=== PATIENT | male | born 1945 | race Caucasian/White ===

== ENCOUNTER 2020-11-15 08:54 | Outpatient (CLI) | payer MEDICARE, OTHER, SELFPAY ==
--- NOTE | 2020-11-15 09:10 | USCV_ITS ---
Franco Anderson Age: 75 Gender: M : 1945 Exam Date: 11/15/2020 09:20 Ordering Phys: Bridgett Jose MD ([email or web address]) Technologist: Exam Location: [facility] Indication: CCA STENOSIS Risk Factors: None Previous Vascular Surgery: CABG Right Brachial BP: / Left Brachial BP: / Right Left Velocity (cm/s) Spectral Plaque Velocity (cm/s) Spectral Plaque Syst/Diast Broadening Syst/Diast Broadening 42.40/ 8.00 Prox CCA 42.30 / 5.20 40.20/ 6.60 Mid CCA 43.00 / 8.00 35.80/ 10.20 Hetro Distal CCA 54.90 / 6.70 Hetro 102.60/24.00 Hetro Prox ICA 54.90 / 11.90 Hetro 114.60/25.30 Hetro Mid ICA 54.20 / 12.60 Hetro 114.60/21.30 Distal ICA 60.80 / 15.60 81.30 ECA 51.90 2.70 ICA/CCA 1.11 Antegrade Vertebral Antegrade 42.20/ 7.20 cm/s 56.40/ 12.60 cm/s Tri Subclavian Tri 53.50 113.9 0 FINDINGS Comparison: none available. No significant elevation of systolic or diastolic velocities. Mild elevation of right ratio but no stenosis. Mild bilateral scattered calcified plaque and intimal thickening throughout the common carotid arteries and extending through the bifurcation. Antegrade vertebral arteries. CONCLUSIONS Bilateral ICA stenosis less than 50%. Mild bilateral carotid atherosclerosis. Dr. Lindsey Lindsey DO (Electronically Signed) Final Date: 15 November 2020 10:13 S
== END 2020-11-15 08:55 | disposition home or self-care (01) ==
PROVIDERS: PCP Nurse Practitioner Family; Visit Provider Internal Medicine Cardiovascular Disease
DX: I65.23 Occlusion and stenosis of bilateral carotid arteries (principal)
CPT/HCPCS: 93880

== ENCOUNTER 2020-11-29 09:23 | Outpatient (CLI) | payer MEDICARE, OTHER, SELFPAY ==
[2020-11-29 09:37] VITALS: BMI 28.5
--- NOTE | 2020-11-29 09:55 | NMCV_ITS ---
NM fanny perf SPECT r/s* [id number] Franco Anderson Age: 75 Gender: M : 1945 Exam Date: 11/29/2020 10:52 Ordering Phys: Bridgett Jose MD ([email or web address]) Technologist: LAMONT Porter Exam Location: [facility] Indications: CHEST PAIN STRESS TEST [facility] IMAGE PROTOCOL Rest/Stress 1 Lexiscan Day Radiopharmaceutical Dose (mCi) Administration Site Administered by Rest: Tc-99m 10.9 IV LAMONT Rodgers Sestamibi Stress:Tc-99m 32.0 IV LAMONT Porter Sestamilos Rest: 29-Nov-2020 60 Discovery 630 Stress: 29-Nov-2020 30 Discovery 630 0.4mg Lexiscan. Images obtained in supine and prone position. SPECT RESULTS Technical Quality: Excellent Raw Data Analysis: Normal Image Corrections: No attenuation or motion correction applied Summed Stress Score: 8 Summed Rest Score: 7 Summed Difference Score: 1 PERFUSION FINDINGS Small sized perfusion abnormality of mild severity of basal to mid inferolateral, mid inferior and apical lateral ulloa on rest images with mild reversibility in apical lateral wall on stress images. FUNCTIONAL RESULTS (calculated via Gated SPECT) Stress Image LV EF (%): 57 Stress EDV (mL):86 TID: 1 Stress ESV (mL):37 FUNCTIONAL FINDINGS: The left ventricle is normal in size. Transient Ischemia Dilatation of 1. There is normal left ventricular systolic function. The left ventricular ejection fraction is normal with a value of 57%. There is normal left ventricular wall thickening. Normal end-diastolic end-systolic volumes. IMPRESSIONS 1. Small sized perfusion abnormality of mild severity of basal to mid inferolateral, mid inferior and apical lateral ulloa with mild reversibility in apical lateral ulloa on stress images. 2. This may represent old myocardial infarction in right coronary artery and circumflex artery territory with mild dominique-infarct ischemia in circumflex artery territory. 3. Overall left ventricular systolic function is normal without regional wall motion abnormalities. 4. The left ventricular ejection fraction is normal with a value of 57%. 5. No prior similar studies to compare. Bridgett Jose MD (Electronically Signed) Final Date: 04 December 2020 13:02 S
--- NOTE | 2020-11-29 09:55 | ECG_ITS ---
[facility] Test Date: 2020-11-29 Pat Name: Franco Anderson Department: Room: Gender: Male Division Controller: Ysabel Ruvalcaba : 1945 Requested By: Bridgett Jose Order Number: [id number] Abdi MD: Bridgett Jose M.D. Interpretive Statements NAME OF STUDY: LEXISCAN SESTAMIBI STRESS TEST INDICATION: Chest Pain PROCEDURE: At the baseline, the blood pressure was 187/88 mmHg, oxygen saturation 96% with a heart rate of 55 bpm. The electrocardiogram showed sinus bradycardia, normal axis with nonspecific ST-T wave changes. Baseline artifact noted. The Lexiscan was infused over a period of 20 seconds. A total of 0.4 milligrams of Lexiscan was infused. The stress phase was continued for a total of 5 minutes. Heart rate at the end of the stress phase was 81 bpm, oxygen saturation 95% with a blood pressure of 168/91 mmHg. The EKG at the peak infusion revealed no significant ST-T wave changes. Interpretation limited by baseline artifact. Sestamibi was injected 20 seconds after the Lexiscan infusion. Blood pressure at the end of the recovery phase was 205/84 mmHg, oxygen saturation of 96% with a heart rate of 65 beats per minute. CONCLUSION: 1. No significant EKG changes with the LexiScan infusion. 2. No LexiScan induced chest pain or cardiac arrhythmia. 3. Normal blood pressure and heart rate response. 4. Sestamibi/sestamibi perfusion scan pending; see separate report. Electronically Signed On 11-30-2020 17:00:55 CDT by Bridgett Jose M.D. [id number]
[2020-11-29 11:56] VITALS: BP 174/88; PULSE 73
[2020-11-29] MEDS: regadenoson 0.4 Mg/5 ml Syringe IVP (11:57)
== END 2020-11-29 09:24 | disposition home or self-care (01) ==
PROVIDERS: PCP Nurse Practitioner Family; Visit Provider Internal Medicine Cardiovascular Disease
DX: R07.9 Chest pain, unspecified (principal)
CPT/HCPCS: 78452; 93017; A9500; J2785

== ENCOUNTER 2021-04-28 13:14 | Inpatient (IN) | payer MEDICARE, OTHER, SELFPAY ==
[2021-04-28] VITALS (10 sets, daily range): BP systolic 151–223; BP diastolic 73–126; PULSE 71–130; RESP 13–36; TEMP 36.8; O2SAT 90–94; BMI 27.8
--- NOTE | 2021-04-28 13:16 | W.ED.FALL ---
HPI - Fall General: Chief Complaint: ER Hold Stated Complaint: FALL/ POSSIBLE AMS/ WEAKNESS Time Seen by Provider: 04/28/21 13:15 History of Present Illness: HPI Narrative: 75 yo male presents to the emergency room via EMS. He is brought in for altered mental status evidently had driven himself to the local clinic but then was not able to really answer any questions he was unable to get out of the car medical staff went out to see him and then called EMS. When staff encountered patient they found him outside of the vehicle on the ground. Patient is awake in the emergency room he will respond to verbal stimuli but does not really give much for history. He is able to tell me he denies any chest pain. Denies any abdominal pain he does have a bit of a cough. MD complaint: fall Onset (ago): unknown Fall witnessed: no Place fall occurred: street Prolonged down time: no Severity: moderate Associated symptoms-after fall: Reports confusion, difficulty walking and weakness; Denies abdominal pain, chest pain, headache(s), hematuria, lightheadedness, neck pain, numbness, short of breath or vertigo Review of Systems Const: Denies: fever(s), chills, body aches, change in appetite, fatigue or malaise ENMT: Denies: throat pain, ear or mastoid pain, nasal discharge or nasal congestion Card: Denies: chest pain or lightheadedness Resp: Denies: dyspnea, productive cough or non-productive cough GI: Denies: abdominal pain : Denies: hematuria Musc: Denies: neck pain Skin/Breast: Denies: rash or pruritus Neuro: Reports: difficulty walking and confusion; Denies: headache(s) or vertigo [facility] ED PFSH: Medical History Chronic kidney disease (CKD) Coronary artery disease Diabetes HTN (hypertension) Hyperlipidemia Surgical History History of coronary artery stent placement History of left hip replacement 20 years prior Hx of cholecystectomy 2010 Family History Mother Diabetes Sister Chronic kidney disease (CKD) Diabetes Stroke Social History Smoking and tobacco status: former smoker Alcohol intake: never Physical Exam Const: GENERAL APPEARANCE: cooperative and comfortable ORIENTATION/CONSCIOUSNESS: Yes awake HENMT: COMMON NORMALS: normocephalic, atraumatic, hearing grossly normal bilaterally, external ears normal, EAC's normal, TM's normal bilaterally, Normal nasal mucous membranes and turbinates present, moist oral mucous membranes and oropharynx normal HEAD & SCALP: normocephalic and atraumatic NOSE: Normal nasal mucous membranes and turbinates present EXTERNAL EAR: Yes external ears normal EXTERNAL AUDITORY CANAL: EAC's normal TYMPANIC MEMBRANE: TM's normal bilaterally Eye: COMMON NORMALS: Equal, round and reactive pupils present, EOMs intact bilaterally, conjunctivae normal and no scleral icterus CONJUNCTIVA: Yes conjunctivae normal PUPIL: Yes Equal, round and reactive pupils present Neck/C-Spine: COMMON NORMALS: full ROM, no lymphadenopathy, supple and no JVD Resp: COMMON NORMALS: normal respiratory effort, No retractions, No use of accessory muscles and clear to auscultation bilaterally AUSCULTATION: clear to auscultation bilaterally Cardio: COMMON NORMALS: no JVD, regular rate, regular rhythm and No murmurs present (Cardio) RATE: regular rate RHYTHM: regular rhythm GI: COMMON NORMALS: Soft to palpation and No hepatosplenomegaly present AUSCULTATION: Yes normoactive bowel sounds PALPATION: Yes Soft to palpation, No Tenderness to palpation present (GI), No Guarding due to palpation present (GI) and Yes No hepatosplenomegaly present Extremity: COMMON NORMALS: normal to inspection, capillary refill normal, no clubbing, cyanosis or edema, no calf tenderness and no pedal edema Skin: COMMON NORMALS: no rashes or lesions noted GENERAL SKIN EXAM: no rashes or lesions noted Course Vital Signs: Vital signs: Vital Signs Temperature 97.8 F 04/30/21 11:57 Pulse Rate 63 04/30/21 11:57 Respiratory Rate 17 04/30/21 11:57 Blood Pressure 117/59 04/30/21 11:57 Pulse Oximetry 99 04/30/21 11:57 MDM - Fall MDM Narrative: Medical decision making narrative: Patient started on Cardene drip for hypertensive urgency. He does have some encephalopathy think some of it may be due to his COVID and some of his his hypertension. Discussed with hospitalist orders written. Lab Data: Labs: Lab Results 04/28/21 04/28/21 04/28/21 14:34 15:30 15:30 WBC 12.1 10^3/uL H 10 ^3/uL (4.0-10.0) RBC 4.72 10^6/uL 10^6 /uL (4.1-5.3) Hgb 13.6 g/dL g/dL (11.7-16.6) Hct 42.2 % % (42.0-52.0) MCV 89.4 fl fl (80-94) MCH 28.8 pg pg (28.0-34.0) MCHC 32.2 g/dL g/dL (30.0-36.0) RDW 14.0 % % (12.1-15.1) Plt Count 202 10^3/cmm 10^3 /cmm (130-400) MPV 11.8 fL H fL (7.4-10.4) Neut % (Auto) 88.8 % % Lymph % (Auto) 4.8 % % [place] % (Auto) 5.3 % % Eos % (Auto) 0.1 % % Baso % (Auto) 0.5 % % Neut # (Auto) 10.78 10^3/uL H 1 0^3/uL (1.8-7.7) Lymph # (Auto) 0.6 10^3/uL L 10^ 3/uL (0.8-4.8) [place] # (Auto) 0.6 10^3/uL 10^3/ uL (0.2-0.9) Eos # (Auto) 0.0 10^3/uL 10^3/ uL (0.0-0.8) Baso # (Auto) 0.1 10^3/uL 10^3/ uL (0.0-0.1) Nucleated RBC % (a uto) 0 % % Nucleated RBCs # 0.0 /100WBC /100W BC D-Dimer Specimen Type Arterial Sample Site Radial, left ABG pH 7.46 H (7.35-7.45) ABG pCO2 35.3 mmHg mmHg (35-45) ABG pO2 60.1 mmHg L mmHg (80.0-100.0) ABG HCO3 25.1 mmol/L mmol/ L (22-26) ABG O2 Saturation 93.1 ABG Base Excess 1.5 mmol/L mmol/L (-2.0-2.0) Patrick Test Pos A-a O2 Gradient 5.9 mmHg mmHg (5-10) Hematocrit 40.5 % L % (42-52) Hgb O2 Saturation 91.1 % L % (95-100) Carboxyhemoglobin 1.0 %THgb %THgb (0.4-20.1) Methemoglobin 1.1 % % (0.4-1.5) Total Hemoglobin 13.2 g/dL L g/dL (14-18) Sodium 140.0 mmol/L mmol /L Cancelled (131-143) Potassium 4.2 mmol/L mmol/L Cancelled (3.5-5.0) Glucose 236.0 mg/dL H mg/ dL Cancelled (70-115) Ionized Calcium 1.2 mmol/L mmol/L (1.1-1.4) O2 Delivery Device Room air FiO2 21.0 % % Precision Grinder ID Cak Chloride Cancelled Carbon Dioxide Cancelled Anion Gap Cancelled BUN Cancelled Creatinine Cancelled GFR Calculation Cancelled Calculated Osmolal ity Cancelled Lactic Acid Calcium Cancelled Total Bilirubin Cancelled AST Cancelled ALT Cancelled Alkaline Phosphata se Cancelled Creatine Kinase Cancelled Troponin T Baselin e NT-Pro-B Natriuret Pep Total Protein Cancelled Albumin Cancelled Globulin Cancelled Procalcitonin Urine Color Urine Appearance Urine pH Ur Specific Gravit y Urine Protein Urine Glucose (UA) Urine Ketones Urine Blood Urine Nitrate Urine Bilirubin Urine Urobilinogen Ur Leukocyte Kriss ase Urine RBC Urine WBC Ur Squamous Epith Cells Amorphous Sediment Urine Bacteria Ethyl Alcohol Coronavirus 229E ( PCR) SARS-CoV-2 (PCR) 04/28/21 04/28/21 04/28/21 15:30 15:30 15:30 WBC RBC Hgb Hct MCV MCH MCHC RDW Plt Count MPV Neut % (Auto) Lymph % (Auto) [place] % (Auto) Eos % (Auto) Baso % (Auto) Neut # (Auto) Lymph # (Auto) [place] # (Auto) Eos # (Auto) Baso # (Auto) Nucleated RBC % (a uto) Nucleated RBCs # D-Dimer Specimen Type Sample Site ABG pH ABG pCO2 ABG pO2 ABG HCO3 ABG O2 Saturation ABG Base Excess Patrick Test A-a O2 Gradient Hematocrit Hgb O2 Saturation Carboxyhemoglobin Methemoglobin Total Hemoglobin Sodium Potassium Glucose Ionized Calcium O2 Delivery Device FiO2 Precision Grinder ID Chloride Carbon Dioxide Anion Gap BUN Creatinine GFR Calculation Calculated Osmolal ity Lactic Acid 1.7 mmol/L mmol/L (0.5-2.2) Calcium Total Bilirubin AST ALT Alkaline Phosphata se Creatine Kinase Troponin T Baselin e Cancelled NT-Pro-B Natriuret Pep Total Protein Albumin Globulin Procalcitonin Urine Color Urine Appearance Urine pH Ur Specific Gravit y Urine Protein Urine Glucose (UA) Urine Ketones Urine Blood Urine Nitrate Urine Bilirubin Urine Urobilinogen Ur Leukocyte Kriss ase Urine RBC Urine WBC Ur Squamous Epith Cells Amorphous Sediment Urine Bacteria Ethyl Alcohol Coronavirus 229E ( PCR) Not detected (NOT DETECT) SARS-CoV-2 (PCR) Detected A (NOT DETECT) 04/28/21 04/28/21 04/28/21 16:02 16:17 16:17 WBC RBC Hgb Hct MCV MCH MCHC RDW Plt Count MPV Neut % (Auto) Lymph % (Auto) [place] % (Auto) Eos % (Auto) Baso % (Auto) Neut # (Auto) Lymph # (Auto) [place] # (Auto) Eos # (Auto) Baso # (Auto) Nucleated RBC % (a uto) Nucleated RBCs # D-Dimer Specimen Type Sample Site ABG pH ABG pCO2 ABG pO2 ABG HCO3 ABG O2 Saturation ABG Base Excess Patrick Test A-a O2 Gradient Hematocrit Hgb O2 Saturation Carboxyhemoglobin Methemoglobin Total Hemoglobin Sodium 137 mmol/L mmol/L (136-145) Potassium 4.1 mmol/L mmol/L (3.5-5.1) Glucose 240 mg/dL H mg/dL (65-115) Ionized Calcium O2 Delivery Device FiO2 Precision Grinder ID Chloride 102 mmol/L mmol/L (98-107) Carbon Dioxide 20 mmol/L L mmol/ L (22-29) Anion Gap 19.1 H (5-19) BUN 17 mg/dL mg/dL (8-23) Creatinine 1.2 mg/dL mg/dL (0.7-1.2) GFR Calculation Not Reportable Calculated Osmolal ity 293 mOsm/kg mOsm/ kg (285-295) Lactic Acid Calcium 8.4 mg/dL L mg/dL (8.5-10.5) Total Bilirubin 0.6 mg/dL mg/dL (0.15-1.2) AST 15 U/L U/L (0-40) ALT 18 U/L U/L (0-41) Alkaline Phosphata se 71 IU/L IU/L (40-130) Creatine Kinase 100 U/L U/L (39-308) Troponin T Baselin e 68 ng/L H ng/L (0-15) NT-Pro-B Natriuret Pep Total Protein 6.3 g/dL L g/dL (6.6-8.7) Albumin 3.9 g/dL g/dL (3.5-5.2) Globulin 2.4 g/dL g/dL (1.3-4.6) Procalcitonin Urine Color Yellow (Yellow) Urine Appearance Clear (CLEAR) Urine pH 5 (5-7) Ur Specific Gravit y 1.010 (1.005-1.030) Urine Protein 1+ H (Negative) Urine Glucose (UA) 2+ H (Normal) Urine Ketones 1+ H (Negative) Urine Blood 2+ H (Negative) Urine Nitrate Negative (Negative) Urine Bilirubin Neg (Negative) Urine Urobilinogen Norm mg/dL mg/dL (Negative) Ur Leukocyte Kriss ase Negative (Negative) Urine RBC 5-10 /hpf H /hpf (0-2) Urine WBC None /hpf /hpf (0-5) Ur Squamous Epith Cells None /hpf /hpf (0-5) Amorphous Sediment Not Reportable Urine Bacteria None /hpf /hpf (NONE) Ethyl Alcohol Coronavirus 229E ( PCR) SARS-CoV-2 (PCR) 04/28/21 04/28/21 04/28/21 16:17 16:17 16:17 WBC RBC Hgb Hct MCV MCH MCHC RDW Plt Count MPV Neut % (Auto) Lymph % (Auto) [place] % (Auto) Eos % (Auto) Baso % (Auto) Neut # (Auto) Lymph # (Auto) [place] # (Auto) Eos # (Auto) Baso # (Auto) Nucleated RBC % (a uto) Nucleated RBCs # D-Dimer 3.04 ug/mIFEU H u g/mIFEU (0-0.59) Specimen Type Sample Site ABG pH ABG pCO2 ABG pO2 ABG HCO3 ABG O2 Saturation ABG Base Excess Patrick Test A-a O2 Gradient Hematocrit Hgb O2 Saturation Carboxyhemoglobin Methemoglobin Total Hemoglobin Sodium Potassium Glucose Ionized Calcium O2 Delivery Device FiO2 Precision Grinder ID Chloride Carbon Dioxide Anion Gap BUN Creatinine GFR Calculation Calculated Osmolal ity Lactic Acid 1.3 mmol/L mmol/L (0.5-2.2) Calcium Total Bilirubin AST ALT Alkaline Phosphata se Creatine Kinase Troponin T Baselin e NT-Pro-B Natriuret Pep 1959 pg/mL H pg/m L (0-450) Total Protein Albumin Globulin Procalcitonin 0.31 ng/mL ng/mL (0-0.5) Urine Color Urine Appearance Urine pH Ur Specific Gravit y Urine Protein Urine Glucose (UA) Urine Ketones Urine Blood Urine Nitrate Urine Bilirubin Urine Urobilinogen Ur Leukocyte Kriss ase Urine RBC Urine WBC Ur Squamous Epith Cells Amorphous Sediment Urine Bacteria Ethyl Alcohol < 10 mg/dL mg/dL (0-10) Coronavirus 229E ( PCR) SARS-CoV-2 (PCR) Discharge Plan Discharge Patient Disposition: Admitted As Inpatient Admit Provider: Pino Fernando Clinical Impression: Encephalopathy, Encephalopathy, hypertensive, COVID-19 Condition: Stable Discharge Diet: Cardiac Discharge Activity: Resume usual activity Coding Level of Care Code ED Incident Response Manager for Mary Ellen Ha
--- NOTE | 2021-04-28 14:15 | CT_ITS ---
WS: [id number] CT HEAD TECHNIQUE: Noncontrast CT of the head obtained from the skullbase to the vertex. CLINICAL INFORMATION: AMS COMPARISON: None. DLP: 1466.[address] scans at [facility] use at least one of these dose optimization techniques: automated e xposure control; mA and/or kV adjustment per patient size (includes targeted exams where dose is matc hed to clinical indication); or iterative reconstruction. FINDINGS: No evidence of intracranial hemorrhage or mass effect. Ventricular system and basal cisterns are chun nt. Mild small vessel changes with moderate parenchymal volume loss. Chronic lacunar infarcts in the left greater than right basal ganglia. No extra-axial fluid collections. No evidence of mass or mass effect. Mild sinusitis involving the left maxillary sinus. Mild mucosal thickening in the left frontal sinus and ethmoid air cells. Mastoid air cells are well aerated. CT/CT head wo con* [id number] IMPRESSION: 1. No evidence of intracranial hemorrhage or mass effect. 2. Mild small vessel changes. Moderate parenchymal volume loss. 3. Chronic lacunar infarcts in the left greater than right basal ganglia. 4. Intracranial vascular calcification. 5. Mild sinusitis involving the left maxillary sinus. Mild mucosal thickening in the left frontal sinus and ethmoid air cells. 6. No acute intracranial findings.
--- NOTE | 2021-04-28 14:15 | ECG_ITS ---
[facility] Test Date: 2021-04-28 Pat Name: Franco Anderson Department: Room: Gender: Male Care Professional: : 1945 Requested By: Олег Bullock Order Number: [id number] Reading MD: DELORIS MEADOWS Measurements Intervals [place] Rate: 93 P: 83 WV: 262 QRS: -57 QRSD: 100 T: 49 QT: 374 QTc: 467 Interpretive Statements SINUS RHYTHM WITH FIRST DEGREE AV BLOCK LEFT AXIS DEVIATION [QRS AXIS < -30] PATTERN CONSISTENT WITH PULMONARY DISEASE MINIMAL ST DEPRESSION [0.025+ mV ST DEPRESSION] No previous ECG available for comparison Electronically Signed On 04-28-2021 18:14:21 YARN WRAPPER by DELORIS MEADOWS [id number]
--- NOTE | 2021-04-28 14:15 | XR_ITS ---
WS: [id number] XR chest 1V portable [id number] REASON FOR EXAM: dyspnea/cough FINDINGS: No previous examination for comparison. Patient is significantly rotated to the left. Moderate tortuosity thoracic aorta. Heart at the upper limits of normal. Elevation of the right hemidiaphragm with flattening. Presumed old pleural thickening along the lateral margin of the right lung. 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 Calcified granulomatous disease in both hemithoraces. No definite acute pulmonary parenchymal or pleural abnormality. Multiple old healed rib fractures on the left. XR/XR chest 1V portable [id number] IMPRESSION: Presumed chronic abnormalities in the chest as above. No definite acute chest abnormality.
[2021-04-28 14:45] LABS: ABG PCO2 35.3 mmHg (35-45); ABG PH Result 7.46 (7.35-7.45); Alveolar-Arterial Oxygen Gradi 5.9 mmHg (5-10); Arterial Blood Gas Hematocrit 40.5 % (42-52); Base Excess ABG 1.5 mmol/L (-2.0-2.0); Blood Gas Allen Test Pos; Blood Gas Operator Identificat CAK; Blood Gas Sample Site Radial, left; Blood Gas Sample Type Arterial; HCO3 ABG 25.1 mmol/L (22-26); HGB O2 Sat 91.1 % (95-100); Ionized Calcium Level - ABG 1.2 mmol/L (1.1-1.4); Methemoglobin 1.1 % (0.4-1.5); Oxygen Device ROOM AIR; Oxygen Saturation ABG 93.1; PO2 ABG 60.1 mmHg (80.0-100.0); Potassium Level - ABG 4.2 mmol/L (3.5-5.0); Total Hemoglobin 13.2 g/dL (14-18)
[2021-04-28 15:37] LABS: Basophils # 0.1 10^3/uL (0.0-0.1); Basophils % 0.5 %; Eosinophils % 0.1 %; Hematocrit 42.2 % (42.0-52.0); Hemoglobin 13.6 g/dL (11.7-16.6); Lymphocytes # 0.6 10^3/uL (0.8-4.8); Lymphocytes % 4.8 %; Mean Corpuscular HGB Conc 32.2 g/dL (30.0-36.0); Mean Corpuscular Hemoglobin 28.8 pg (28.0-34.0); Mean Corpuscular Volume 89.4 fl (80-94); Mean Platelet Volume 11.8 fL (7.4-10.4); Monocytes # 0.6 10^3/uL (0.2-0.9); Monocytes % 5.3 %; Neutrophils # 10.78 10^3/uL (1.8-7.7); Neutrophils % 88.8 %; Nucleated Red Blood Cells % 0 %; Platelet Count 202 10^3/cmm (130-400); Red Blood Count 4.72 10^6/uL (4.1-5.3); White Blood Count 12.1 10^3/uL (4.0-10.0)
[2021-04-28 15:51] LABS: Lactic Sepsis W/Reflex 1.7 mmol/L (0.5-2.2)
[2021-04-28 16:38] LABS: Protein Urine 1+ (Negative); Urine Appearance Clear (CLEAR); Urine Color Yellow (Yellow); pH Urine 5 (5-7)
[2021-04-28 16:39] LABS: Add Urine Culture? No; Add Urine Microscopic? YES; Bilirubin Urine Neg (Negative); Blood Urine 2+ (Negative); Glucose Urine UA 2+ (Normal); Ketones Urine 1+ (Negative); Leukocyte Esterase Urine Negative (Negative); Nitrate Urine Negative (Negative); Urobilinogen Urine Norm (Negative)
[2021-04-28 16:47] LABS: Alanine Aminotransferase 18 U/L (0-41); Albumin Level 3.9 g/dL (3.5-5.2); Alkaline Phosphatase 71 IU/L (40-130); Anion Gap 19.1 (5-19); Aspartate Amino Transferase 15 U/L (0-40); Blood Urea Nitrogen 17 mg/dL (8-23); Calcium 8.4 mg/dL (8.5-10.5); Carbon Dioxide 20 mmol/L (22-29); Chloride 102 mmol/L (98-107); Creatine Phosphokinase 100 U/L (39-308); Globulin 2.4 g/dL (1.3-4.6); Glucose 240 mg/dL (65-115); Osmolality Calculated 293 mOsm/kg (285-295); Potassium 4.1 mmol/L (3.5-5.1); Sodium 137 mmol/L (136-145); Total Bilirubin 0.6 mg/dL (0.15-1.2); Total Protein 6.3 g/dL (6.6-8.7)
[2021-04-28 16:50] LABS: Troponin(5th) Baseline 68 ng/L (0-15)
--- NOTE | 2021-04-28 17:11 | CTR_ITS ---
PROCEDURE INFORMATION: Exam: CT Angiography Head With Contrast, Arteriography Exam date and time: 04/28/2021 5:11 PM Age: 75 years old Clinical indication: Patient HX: AMS w/ weakness TECHNIQUE: Imaging protocol: Computed tomography angiography of the head with contrast. Exam focused on the arteries. 3D rendering (Not supervised by radiologist): MIP and/or 3D reconstructed images were created by the technologist. Radiation optimization: All CT scans at this facility use at least one of these dose optimization techniques: automated exposure control; mA and/or kV adjustment per patient size (includes targeted exams where dose is matched to clinical indication); or iterative reconstruction. Contrast material: VISIPAQUE 320; Contrast volume: 95 ml; Contrast route: INTRAVENOUS (IV); COMPARISON: CT head wo con* [id number] 04/28/2021 2:28 PM RADIATION DOSE METRICS: Total DLP (mGy-cm): 2362.52 FINDINGS: ANTERIOR CIRCULATION: Right internal carotid artery: Unremarkable. Intracranial segment is patent with no significant stenosis. No aneurysm. Right middle cerebral artery: Unremarkable. No occlusion or significant stenosis. No aneurysm. Right anterior cerebral artery: Unremarkable. No occlusion or significant stenosis. No aneurysm. Left internal carotid artery: Unremarkable. Intracranial segment is patent with no significant stenosis. No aneurysm. Left middle cerebral artery: Unremarkable. No occlusion or significant stenosis. No aneurysm. Left anterior cerebral artery: Unremarkable. No occlusion or significant stenosis. No aneurysm. POSTERIOR CIRCULATION: Right vertebral artery: Unremarkable. No occlusion or significant stenosis. No aneurysm. Left vertebral artery: Unremarkable. No occlusion or significant stenosis. No aneurysm. Basilar artery: Unremarkable. No occlusion or significant stenosis. No aneurysm. Right posterior cerebral artery: Unremarkable. No occlusion or significant stenosis. No aneurysm. Left posterior cerebral artery: Unremarkable. No occlusion or significant stenosis. No aneurysm. Brain: No definite mass, mass effect, or midline shift. Cerebral ventricles: No ventriculomegaly. Bones/joints: Unremarkable. No acute fracture. Soft tissues: Unremarkable. PROCEDURE INFORMATION: Exam: CT Angiography Neck With Contrast Exam date and time: 04/28/2021 5:11 PM Age: 75 years old Clinical indication: Patient HX: AMS w/ weakness TECHNIQUE: Imaging protocol: Computed tomography angiography of the neck with contrast. 3D rendering (Not supervised by radiologist): MIP and/or 3D reconstructed images were created by the technologist. Radiation optimization: All CT scans at this facility use at least one of these dose optimization techniques: automated exposure control; mA and/or kV adjustment per patient size (includes targeted exams where dose is matched to clinical indication); or iterative reconstruction. Contrast material: VISIPAQUE 320; Contrast volume: 95 ml; Contrast route: INTRAVENOUS (IV); COMPARISON: CT head wo con* [id number] 04/28/2021 2:28 PM RADIATION DOSE METRICS: Total DLP (mGy-cm): 2362.52 FINDINGS: Right common carotid artery: Moderate stenosis at the carotid bulb with an estimated 50% luminal narrowing. No dissection or occlusion. Right internal carotid artery: Severe stenosis at the origin of the internal carotid artery with an estimated 70% luminal narrowing. No dissection or occlusion. Right external carotid artery: Mild stenosis at the origin with less than 50% luminal narrowing. Left common carotid artery: Mild stenosis at the carotid bulb with less than 50% luminal narrowing. No dissection or occlusion. Left internal carotid artery: Mild stenosis at the origin of the left internal carotid artery with less than 50% luminal narrowing. No dissection or occlusion. Left external carotid artery: No occlusion or stenosis of the origin. Right vertebral artery: No stenosis. No dissection or occlusion. Left vertebral artery: No stenosis. No dissection or occlusion. Soft tissues: Normal. No significant soft tissue swelling. Bones/joints: No acute fracture. CT/CT angio headneck* [id number] IMPRESSION: No large vessel stenosis or occlusion. IMPRESSION: 1. Severe stenosis at the origin of the right internal carotid artery and moderate stenosis at the right carotid bulb. 2. Mild stenosis at the origin of the left internal carotid artery and the left carotid bulb. REFERENCES: NASCET CRITERIA. The degree of internal carotid artery stenosis is based on NASCET criteria. Normal is no stenosis. Mild is less than 50% stenosis. Moderate is 50-69% stenosis. Severe is 70% to 99% stenosis. Total occlusion is no detectable patent lumen.
[2021-04-28 17:19] LABS: Adenovirus Not Detected (NOT DETECT); Chlamydia Pneumoniae Not Detected (NOT DETECT); Coronavirus 229E,HKU1,NL63,OC4 Not Detected (NOT DETECT); Human Metapneumovirus Not Detected (NOT DETECT); Human Rhinovirus/Enterovirus Not Detected (NOT DETECT); Influenza A Not Detected (NOT DETECT); Influenza A H1 Not Detected (NOT DETECT); Influenza A H1-2009 Not Detected (NOT DETECT); Influenza A H3 Not Detected (NOT DETECT); Influenza B Not Detected (NOT DETECT); Mycoplasma Pneumoniae Not Detected (NOT DETECT); Parainfluenza Virus Type 1 Not Detected (NOT DETECT); Parainfluenza Virus Type 2 Not Detected (NOT DETECT); Parainfluenza Virus Type 3 Not Detected (NOT DETECT); Parainfluenza Virus Type 4 Not Detected (NOT DETECT); Respiratory Syncytial Virus A Not Detected (NOT DETECT); Respiratory Syncytial Virus B Not Detected (NOT DETECT); SARS-COV-2 Detected (NOT DETECT)
[2021-04-28] MEDS: iodixanol 320 mg/mL 100mL Btl IV (17:34)
--- NOTE | 2021-04-28 17:45 | PC.PHAR ---
pt unable to verify medications-pts sister camelia states the pt takes care of his own medications-medications entered are meds that jeaneth states they have filled recently and some meds were on previous entered med list-jeaneth states they havent filled januvia since 10/2019-jeaneth states they never filled a symbicort inhaler that was a previous entered med list with no strength
--- NOTE | 2021-04-28 17:59 | PC.NURSE ---
DR MCCRAY INSTRUCTED TO NOT GIVE MEDICATION DUE TO WANTING JUST THE CARDENE DRIP STARTED. NURSE VERBALIZED BACK.
--- NOTE | 2021-04-28 18:09 | P.HP_ITS ---
Providers/Chief Complaint Primary Care Provider: Karey Villa Chief Complaint: FALL/ POSSIBLE AMS/ WEAKNESS History of Present Illness Franco Anderson is a 75 year old male with a past medical history of hypertension, hyperlipidemia, diabetes, CKD, COPD, B12 deficiency, CAD who presents to [facility] due to altered mental status. Currently patient is alert, not to person, not to place, not to time, does awaken, tells me that he sleeping and goes back to sleep. The information that I got was patient presented to the [facility], yes he drove himself to clinic, the cause of him seeking medical attention is not known, but it seems as if he was being screened for COVID, as he is waiting outside, the provider went outside, they found him out side of his car on the floor, he was confused, altered, so they put him in a wheelchair and called EMS. Here in the emergency room, patient's alert, opens his eyes, tells me he wants to go back to sleep and goes back to sleep, no facial droop, slurring of his words, does not follow commands, but does have spontaneous movement upper and lower extremities, he has generalized tremor of upper and lower extremity, pupils equal round reactive to light, does not withdraw from pain, NIH stroke scale over 15, his last known well normal is not known,, out of tPA window. CT the head so far unremarkable, CTA pending, blood work relatively unremarkable, does have elevated troponin, no evidence of UTI, no evidence of pneumonia. No fevers. His COVID test was positive. Active wheezing on exam. Blood pressures are 200s over 120s, Review of Systems General: Reports: ROS unobtainable due to medical condition Medications/Allergies Home Medications Medication Instructions Recorded Confirmed Last Taken Type aspirin 81 mg tablet,delayed 81 mg PO DAILY 10/12/20 04/28/21 Unknown History release cholecalciferol (vitamin D3) 25 25 mcg PO DAILY 10/12/20 04/28/21 Unknown History mcg (1,000 unit) capsule clopidogrel 75 mg tablet 75 mg PO DAILY 10/12/20 04/28/21 Unknown History glipizide 10 mg tablet 10 mg PO BID 10/12/20 04/28/21 Unknown History metformin 1,000 mg tablet 1,000 mg PO BID 10/12/20 04/28/21 Unknown History nitroglycerin 0.4 mg sublingual 0.4 mg SUBLINGUAL Q5M PRN 10/12/20 04/28/21 Unknown History tablet simvastatin 20 mg tablet 20 mg PO DAILY 10/12/20 04/28/21 Unknown History vitamin B complex 1 tab PO DAILY 10/12/20 04/28/21 Unknown History timolol 0.5 % eye drops 1 drp OPHTHALMIC (EYE) QAM 12/13/20 04/28/21 Unknown History lisinopril 20 mg PO DAILY 04/28/21 04/28/21 Unknown History metoprolol tartrate 25 mg PO BID 04/28/21 04/28/21 Unknown History Allergies Allergy/AdvReac Type Severity Reaction Status Date / Time No Known Allergies Allergy Verified 12/13/20 10:27 PFSH Acute PFSH: Medical History Chronic kidney disease (CKD) Coronary artery disease Diabetes HTN (hypertension) Hyperlipidemia Surgical History History of coronary artery stent placement History of left hip replacement 20 years prior Hx of cholecystectomy 2011 Family History Mother Diabetes Sister Chronic kidney disease (CKD) Diabetes Stroke Social History Smoking and tobacco status: former smoker Alcohol intake: never Vitals/I&O/Wt Last Vital Signs Temp 98.3 F 04/28/21 13:32 Pulse 101 H 04/28/21 18:07 Resp 20 H 04/28/21 18:07 BP 192/118 04/28/21 18:07 Pulse Ox 93 04/28/21 18:07 Weight last 48 hrs Weight 90.718 kg Physical Exam Narrative: EXAM NARRATIVE: Alert, opens his eyes, not to person, not to place, not to time Const: COMMON NORMALS: no acute distress and patient oriented x3 GENERAL APPEARANCE: cooperative HENMT: COMMON NORMALS: normocephalic HEAD & SCALP: normocephalic Eye: COMMON NORMALS: Equal, round and reactive pupils present and EOMs intact bilaterally PUPIL: Yes Equal, round and reactive pupils present Neck/C-Spine: COMMON NORMALS: full ROM THYROID: Thyroid normal Lymph: LYMPHATIC: no lymphadenopathy noted Resp: COMMON NORMALS: normal respiratory effort, No retractions, No use of accessory muscles and clear to auscultation bilaterally AUSCULTATION: wheezes (Diffuse wheezing) Cardio: COMMON NORMALS: regular rate, regular rhythm, S1 normal heart sound present, S2 normal heart sound present, No gallops present (Cardio), No clicks present (Cardio) and No murmurs present (Cardio) RATE: regular rate RH YTHM: regular rhythm HEART SOUNDS: S1 normal heart sound present and S2 normal heart sound present GI: COMMON NORMALS: Normal to inspection, nondistended, normoactive bowel sounds present, Soft to palpation and non-tender Extremity: COMMON NORMALS: no pedal edema Neuro: SENSORIUM/ORIENTATION: Yes alert, No oriented to person, No oriented to place and No oriented to time OTHER: Does not follow neurologic testing, diffuse shaking of all upper lower extremity Data : 04/28/21 15:30 04/28/21 16:17 A&P Assessment and plan (1) Acute encephalopathy: Acute encephalopathy -Related to hypertensive encephalopathy -COVID-19 pneumonia -Possible press syndrome? -CT of the head no acute stroke, no acute bleed -CTA of the head and neck 1. Severe stenosis at the origin of the right internal carotid artery and moderate stenosis at the right carotid bulb. 2. Mild stenosis at the origin of the left internal carotid artery and the left carotid bulb. -EKG shows ST depressions in inferior leads, troponin 68, no chest pain complaints -No focalizing symptoms, more generalized symptoms Plan: -Admit to ICU -Start Cardene drip, decrease mean arterial pressure by approximately 10 to 20% in the first hour, then gradually during the next 23 hours - Given carotid artery stenosis as above, would avoid sudden drops in blood pressure given risk of stroke -Continue aspirin, Plavix, statin -Neurochecks, aspiration Acacian precautions, seizure precautions, NIH stroke scale -Given his generalized tremor, possible seizures start Keppra thousand every 12 hours -Remdesivir -Decadron -Rocephin, azithromycin -Vitamin C, vitamin D, zinc -Budesonide, ipratropium, monitor respiratory status -Cardiac echo -Order stat MRI for possible press syndrome -Oxygen therapy -Full code -Lovenox for DVT prophylaxis Hypertensive emergency as above Hypertensive encephalopathy as above Non-ST elevation HI, serial troponins, serial EKGs, aspirin, statin, Plavix, beta-austin, Type 2 diabetes mellitus, low-dose sliding scale Hyperlipidemia as above COVID-19 pneumonia as above Status: Acute (2) Pneumonia due to COVID-19 virus: Status: Acute (3) Hypertensive emergency: Status: Acute (4) Hypertensive encephalopathy: Status: Acute (5) Carotid stenosis: Status: Acute Qualifiers: Laterality: unspecified laterality Qualified Code(s): I65.29 - Occlusion and stenosis of unspecified carotid artery (6) Diabetes: Status: Acute Qualifiers: Diabetes mellitus type: type 2 Diabetes mellitus custodial insulin use: without rodent exterminator use Diabetes mellitus complication status: with kidney complications Diabetes mellitus complication detail: with chronic kidney disease (7) HTN (hypertension): Status: Acute Qualifiers: Hypertension type: essential hypertension Qualified Code(s): I10 - Essential (primary) hypertension (8) Hyperlipidemia: Status: Acute Qualifiers: Hyperlipidemia type: unspecified Qualified Code(s): E78.5 - Hyperlipidemia, unspecified Attestations Medical Necessity Statement*: Patient requires hospitalization inpatient, greater than 2 midnights, for acute encephalopathy Coding Level of Care Code Acute [employer] Instructor for [facility] Diagnoses Acute encephalopathy G93.40 Pneumonia due to COVID-19 virus U07.1; J12.82 Hypertensive emergency I16.1 Hypertensive encephalopathy I67.4 Carotid stenosis I65.29 Laterality: unspecified laterality Diabetes E11.9 Diabetes mellitus type: type 2 Diabetes mellitus rodent exterminator insulin use: without custodial use Diabetes mellitus complication status: with kidney complications Diabetes mellitus complication detail: with chronic kidney disease HTN (hypertension) I10 Hypertension type: essential hypertension Hyperlipidemia E78.5 Hyperlipidemia type: unspecified
[2021-04-28 18:32] LABS: Lactic Sepsis W/Reflex 1.3 mmol/L (0.5-2.2)
[2021-04-28 18:40] LABS: D Dimer 3.04 ug/mIFEU (0-0.59)
[2021-04-28] MEDS: remdesivir 200 MG in sodium chloride 0.9% (100 ml) 60 ML 100 MG IV (18:43)
--- NOTE | 2021-04-28 18:46 | PC.NURSE ---
PATIENT LETHARGIC BUT COMFORTABLE. PATIENT RESPONDS TO VERBAL STIMULI BUT ONLY RESPONDS WITH SOUNDS AND GRUNTS. PROVIDER AWARE.
[2021-04-28 19:11] LABS: NT Pro B Type Natriuretic Pept 1959 pg/mL (0-450); Procalcitonin 0.31 ng/mL (0-0.5)
[2021-04-28 19:25] LABS: Alcohol Level < 10 mg/dL (0-10)
[2021-04-28] MEDS: dexamethasone 10 mg/mL INJ 6 MG IVP (19:33)
[2021-04-28] MEDS: nicardipine 20 MG/200 ML PREMIX 50 MG IV (19:34)
--- NOTE | 2021-04-28 22:05 | PC.NURSE ---
PT. nicardipine stopped due to parameters set by dr. Castelan to keep systolic blood pressure above 160.
[2021-04-28 23:12] LABS: Troponin 5 6HR 76.75 ng/L (0-15); Troponin 5 6HR Delta 8.75 ng/L (0-12)
[2021-04-29] VITALS (14 sets, daily range): BP systolic 115–174; BP diastolic 70–105; PULSE 61–101; RESP 16–29; TEMP 37.2–37.3; O2SAT 91–97; BMI 27.8
--- NOTE | 2021-04-29 03:17 | MRR_ITS ---
PROCEDURE INFORMATION: Exam: MR Head Without Contrast Exam date and time: 04/29/2021 3:17 AM Age: 75 years old Clinical indication: Altered mental status/memory loss; Additional info: AMS, pres syndrome TECHNIQUE: Imaging protocol: MR of the head without contrast. COMPARISON: CT head wo con* [id number] 04/28/2021 2:28 PM FINDINGS: Brain: No hemorrhage, mass effect or midline shift. No evidence of restricted diffusion, to suggest acute/subacute infarct. Tiny lacunar infarcts noted in the basal ganglia bilaterally. There is foci of T2/FLAIR hyperintense signal in the periventricular and subcortical white matter, likely representing chronic small vessel ischemic changes. Mild cerebral volume loss is present. No evidence of remote hemorrhage on gradient echo images. No intra-axial or extra-axial fluid collection identified. Cerebral ventricles: No ventriculomegaly. Bones/joints: Unremarkable. Paranasal sinuses: Mild pansinus mucosal thickening is present. Mastoid air cells: Normal as visualized. No mastoid effusion. Orbital cavity: Unremarkable. Soft tissues: Unremarkable. MR/MR head wo con* [id number] IMPRESSION: No acute intracranial abnormality.
--- NOTE | 2021-04-29 03:17 | USCV_ITS ---
Franco Anderson Age: 75 Gender: M : 1945 Exam Date: 04/29/2021 11:26 Ordering Phys: Pino Fernando MD Technologist: Natasha Godwin Exam Location: [facility] [place] Indication: Shortness of breath BP: 154 / 79 HR: 69 Rhythm: Sinus Technical Quality: Technically difficult study MEASUREMENTS (Male / Female) Normal Values 2D ECHO LV Diastolic Diameter PLAX 3.6 cm 4.2 - 5.9 / 3.9 - 5.3 cm LV Systolic Diameter PLAX 1.8 cm IVS Diastolic Thickness 1.3 cm 0.6 - 1.0 / 0.6 - 0.9 cm IVS Systolic Thickness 1.9 cm LVPW Diastolic Thickness 1.1 cm 0.6 - 1.0 / 0.6 - 0.9 cm LVPW Systolic Thickness 1.1 cm RV Chamber Size 3.1 cm LVOT Diameter 2.1 cm LV Ejection Fraction 2D Teich 82.0 % LV Ejection Fraction MOD 2C 63.5 % LV Ejection Fraction 2C AL 63.2 % LA Diameter 3.4 cm LA Width 2.6 cm LA Height 4.9 cm RA Width 2.8 cm RA Height 5.1 cm Aorta at Sinotubular Diameter 2.8 cm M-MODE Aortic Annulus Diameter 3.9 cm LA Ao Ratio MM 1.0 MV E Point Septal Separation 0.7 cm DOPPLER AV Peak Velocity 110.0 cm/s LVOT Peak Velocity 84.0 cm/s AV Area Cont Eq vti 2.6 cm squared AV Area Cont Eq pk 2.6 cm squared MV Area PHT 3.2 cm squared Mitral E to A Ratio 0.5 MV E' Velocity 21.0 cm/s Mitral E to MV E' Ratio 7.3 Mitral E to LV E' Lateral Ratio 8.6 Mitral E to LV E' Septal Ratio 6.4 TV Peak E Velocity 52.0 cm/s Right Atrial Pressure 3.0 mmHg RV Acceleration Time 0.1 s RV Ejection Time 0.3 s RV AcT/ET 0.4 FINDINGS Left Ventricle Normal left ventricular cavity size. Normal left ventricular systolic function. No regional wall motion abnormalities. Left ventricular ejection fraction is estimated at 60 %. Grade I/IV diastolic dysfunction (abnormal relaxation filling pattern), normal to mildly elevated filling pressures. Right Ventricle The right ventricle is normal in size and function. RVSP could not be calculated due to incomplete tricuspid regurgitation velocity profile. Right Atrium The right atrium is normal in size. Left Atrium The left atrium is normal in size. Mitral Valve Moderately thickened mitral valve. Moderate mitral annular calcification. Trace mitral valve regurgitation. Aortic Valve Structurally normal aortic valve without significant sclerosis or stenosis. There is no aortic regurgitation. Tricuspid Valve Structurally normal tricuspid valve without significant stenosis or regurgitation. Pulmonic Valve Structurally normal pulmonic valve without significant stenosis. There is no pulmonic regurgitation. Pericardium Normal pericardium without effusion. Aorta Normal ascending aorta dimension. CONCLUSIONS 1-Normal left ventricular cavity size. Normal left ventricular systolic function. No regional wall motion abnormalities. Left ventricular ejection fraction is estimated at 60 %. Grade I/IV diastolic dysfunction (abnormal relaxation filling pattern), normal to mildly elevated filling pressures. 2-Moderately thickened mitral valve. Moderate mitral annular calcification. Trace mitral valve regurgitation. 3-There is no pericardial effusion. 4-The right ventricle is normal in size and function. RVSP could not be calculated due to incomplete tricuspid regurgitation velocity profile. 5-Right atrial pressure is around 2 mm of mercury. 6-There are no prior echocardiogram studies to compare. Libra Choudhary MD (Electronically Signed) Final Date: 29 April 2021 17:36 S
[2021-04-29 05:08] LABS: Basophils # 0.1 10^3/uL (0.0-0.1); Basophils % 0.3 %; Hematocrit 42.5 % (42.0-52.0); Hemoglobin 13.9 g/dL (11.7-16.6); Lymphocytes # 0.6 10^3/uL (0.8-4.8); Lymphocytes % 3.6 %; Mean Corpuscular HGB Conc 32.7 g/dL (30.0-36.0); Mean Corpuscular Hemoglobin 28.7 pg (28.0-34.0); Mean Corpuscular Volume 87.6 fl (80-94); Mean Platelet Volume 11.7 fL (7.4-10.4); Monocytes # 0.6 10^3/uL (0.2-0.9); Monocytes % 4.1 %; Neutrophils # 13.77 10^3/uL (1.8-7.7); Neutrophils % 91.4 %; Nucleated Red Blood Cells % 0 %; Platelet Count 237 10^3/cmm (130-400); Red Blood Count 4.85 10^6/uL (4.1-5.3); Red Cell Distribution Width 13.8 % (12.1-15.1); White Blood Count 15.1 10^3/uL (4.0-10.0)
[2021-04-29 05:20] LABS: INR 1.07 (0.8-1.2)
[2021-04-29 05:35] LABS: Anion Gap 23.7 (5-19); Blood Urea Nitrogen 20 mg/dL (8-23); Calcium 8.5 mg/dL (8.5-10.5); Carbon Dioxide 19 mmol/L (22-29); Chloride 99 mmol/L (98-107); Glucose 325 mg/dL (65-115); Magnesium 1.5 mg/dL (1.7-2.3); Osmolality Calculated 299 mOsm/kg (285-295); Potassium 4.7 mmol/L (3.5-5.1); Sodium 137 mmol/L (136-145)
[2021-04-29] MEDS: pantoprazole 40 mg SDV IVP ×2 (05:39→16:00)
[2021-04-29] MEDS: cefTRIAXone 1,000 MG in sodium chloride 0.9% (plus) 50 ML 100 MG IV (05:39)
[2021-04-29] MEDS: azithromycin 500 MG in sodium chloride 0.9% 250 ML 250 MG IV (05:39)
[2021-04-29] MEDS: enoxaparin 40 mg/0.4 mL Syringe SUBCUT (05:41)
[2021-04-29] MEDS: atorvastatin 40 mg Tablet 80 MG PO ×2 (05:42→20:01)
--- NOTE | 2021-04-29 05:55 | PC.NURSE ---
Pt. woke this morning after coming back from MRI and seems to be alert and oriented. Pt. states that everytime he gets pneumonia , he gets confused.
[2021-04-29] MEDS: zinc gluconate 50 mg Tablet PO (09:25)
[2021-04-29] MEDS: ascorbic acid 500 mg Tablet PO ×2 (09:26→18:33)
[2021-04-29] MEDS: metoprolol tartrate 25 mg Tablet PO ×2 (09:26→18:33)
[2021-04-29] MEDS: clopidogrel 75 mg Tablet PO (09:26)
[2021-04-29 09:32] LABS: Glucose Point of Care 268 mg/dL (70-110)
[2021-04-29] MEDS: insulin lispro 100 unit/1 mL SUBCUT ×3 (09:36→18:33)
[2021-04-29] MEDS: cloNIDine 0.1 mg Tablet PO ×2 (09:39→18:32)
[2021-04-29] MEDS: aspirin 81 mg EC Tablet PO (09:39)
[2021-04-29] MEDS: cholecalciferol (vitamin D3) 1,000 unit Tablet 1000 UNIT PO (09:39)
[2021-04-29] MEDS: amlodipine 10 mg Tablet PO (09:39)
--- NOTE | 2021-04-29 10:07 | PC.NURSE ---
Pt resting quietly between care, snack provided, meds administered, urinal provided, pt repositioned, vss, no other immediate needs identified at this time, will continue to monitor.
--- NOTE | 2021-04-29 10:26 | CTR_ITS ---
PROCEDURE INFORMATION: Exam: CTA Chest With Contrast Exam date and time: 04/29/2021 10:26 AM Age: 75 years old Clinical indication: Cough and shortness of breath. Elevated D-dimer. COVID 19 positive. TECHNIQUE: Imaging protocol: Computed tomographic angiography of the chest with contrast. 3D rendering (Not supervised by radiologist): MIP and/or 3D reconstructed images were created by the technologist. Radiation optimization: All CT scans at this facility use at least one of these dose optimization techniques: automated exposure control; mA and/or kV adjustment per patient size (includes targeted exams where dose is matched to clinical indication); or iterative reconstruction. Contrast material: VISI 320; Contrast volume: 66 ml; Contrast route: INTRAVENOUS (IV); COMPARISON: CR XR chest 1V portable [id number] 04/28/2021 2:21 PM RADIATION DOSE METRICS: Total DLP (mGy-cm): 520.96 FINDINGS: Pulmonary arteries: Motion artifact compromises assessment for pulmonary embolus. No main, central or lobar pulmonary embolus is seen. There is mild peribronchial wall thickening. Aorta: No thoracic aortic aneurysm. No thoracic aortic dissection. Lungs: There are patchy ground-glass and airspace opacities in the left lower lobe and, to a lesser extent, in the left upper lobe, concerning for pneumonia. Solid fissural nodule on the right measuring 7.2 mm (image 211). Nodular opacity in the left upper lobe measuring 5.7 mm (image 210). No pulmonary mass. Pleural spaces: No pleural effusion. No pneumothorax. Heart: Coronary arterial calcifications are noted. The heart is enlarged. No pericardial effusion. Lymph nodes: Left hilar lymph node measuring 1.1 x 1.7 cm. A subcarinal lymph node measures 1.0 x 1.9 cm. A right paraesophageal lymph node measures 1.0 x 1.0 cm (image 103). Diaphragm: No hiatal hernia. Gallbladder and bile ducts: The gallbladder has been removed. A periportal lymph node measures 1.2 x 2.0 cm. Occasional colonic diverticula without evidence of acute diverticulitis. Bones/joints: Old bilateral rib fractures are noted. No acute fracture is seen. CT/CT angio chest PE protcl [id number] IMPRESSION: 1. Motion artifact compromises assessment for pulmonary embolus. No main, central or lobar pulmonary embolus is seen. 2. There are patchy ground-glass and airspace opacities in the left lower lobe and, to a lesser extent, in the left upper lobe, concerning for pneumonia. 3. Solid pulmonary nodules measuring up to 7.2 mm. As per Fleischner Society 2017 guidelines for follow-up and management of pulmonary nodules: For patients at low risk (minimal or absent history of smoking and of other known risk factors), recommend CT at 3-6 months, then consider CT at 18-24 months. For patient at high risk (history of smoking or of other known risk factors), recommend CT at 3-6 months, then CT at 18-24 months. 4. Mediastinal, left hilar and periportal lymphadenopathy. 5. Cardiomegaly with coronary artery disease. 6. There is mild peribronchial wall thickening; query viral infection/bronchitis, chronic bronchitis and/or asthma. 7. Occasional colonic diverticula without evidence of acute diverticulitis.
--- NOTE | 2021-04-29 10:27 | USR_ITS ---
PROCEDURE INFORMATION: Exam: US Duplex Lower Extremity Veins, Bilateral Exam date and time: 04/29/2021 10:27 AM Age: 75 years old Clinical indication: Other: Covid 19 TECHNIQUE: Imaging protocol: Real-time duplex ultrasound of the extremities with 2-D guthrie scale, color Doppler flow and spectral waveform analysis with image documentation. Complete exam focused on the bilateral lower extremity veins. COMPARISON: No relevant prior studies available. FINDINGS: Right deep veins: Unremarkable. The common femoral, femoral, proximal profunda femoral and popliteal veins are patent without thrombus. Normal Doppler waveforms. Normal compressibility and/or augmentation response. Right superficial veins: Saphenofemoral junction is patent without thrombus. Left deep veins: Unremarkable. The common femoral, femoral, proximal profunda femoral and popliteal veins are patent without thrombus. Normal Doppler waveforms. Normal compressibility and/or augmentation response. Left superficial veins: Saphenofemoral junction is patent without thrombus. Soft tissues: Unremarkable. US/[place] [id number] IMPRESSION: No evidence of deep vein thrombosis.
--- NOTE | 2021-04-29 11:34 | PC.NURSE ---
This RN updated pt's sister Annmarie on plan of care. Pt notified.
--- NOTE | 2021-04-29 12:55 | P.PN_ITS ---
Subjective Subjective: Interval history: This morning patient was seen, he is alert to person, to place, time to time, much more responsive, he tells me that he presented to the [facility] for pneumonialike symptoms, was looking for steroids, his blood pressures has been fluctuating, has been high recently, denies any strokelike symptoms, no chest pain, no fevers, has a productive co ugh, he tells me that he has had pneumonia in the past, typically steroids help, he is shocked he has COVID, as he tested negative not too long ago Vitals/I&O/Wt Last Vital Signs Temp 98.3 F 04/28/21 13:32 Pulse 61 04/29/21 11:30 Resp 20 H 04/29/21 11:30 BP 115/75 04/29/21 11:30 Pulse Ox 97 04/29/21 12:30 04/28/21 04/29/21 04/29/21 22:59 06:59 14:59 Intake Total 229.583 / 229.583 110 / 339.583 Balance 229.583 / 229.583 110 / 339.583 Weight last 48 hrs Weight 90.718 kg Physical Exam Const: COMMON NORMALS: no acute distress and patient oriented x3 Resp: COMMON NORMALS: normal respiratory effort, No retractions and No use of accessory muscles AUSCULTATION: wheezes Cardio: COMMON NORMALS: regular rate, regular rhythm, S1 normal heart sound present and S2 normal heart sound present RATE: regular rate RHYTHM: regular rhythm HEART SOUNDS: S1 normal heart sound present and S2 normal heart sound present GI: COMMON NORMALS: Normal to inspection, nondistended, normoactive bowel sounds present, Soft to palpation and non-tender PALPATION: Yes Soft to palpation Extremity: COMMON NORMALS: no pedal edema Neuro: COMMON NORMALS: patient oriented x3 Psych: COMMON NORMALS: mental status grossly normal Data : 04/29/21 04:55 04/29/21 04:55 Micro: Microbiology 04/29/21 04:55 Blood Culture - Preliminary Blood SPECIMEN COLLECTED 04/29/21 04:55 Blood Culture - Preliminary Blood SPECIMEN COLLECTED A&P Assessment and plan (1) Acute encephalopathy: Acute encephalopathy -Related to hypertensive encephalopathy -COVID-19 pneumonia -CT of the head no acute stroke, no acute bleed -CTA of the head and neck 1. Severe stenosis at the origin of the right internal carotid artery and moderate stenosis at the right carotid bulb. 2. Mild stenosis at the origin of the left internal carotid artery and the left carotid bulb. -EKG shows ST depressions in inferior leads, troponin 68, 6-hour 76.75 -MRI of the brain no acute intracranial abnormality, tiny lacunar infarcts noted in the basal ganglia bilaterally,T2/FLAIR hyperintense signal in the periventricular and subcortical white matter, likely representing chronic small vessel ischemic changes -No focalizing symptoms, more generalized symptoms Plan: -We will moved to the floors -Continue clonidine 0.1 mg twice daily, Norvasc 10 mg daily, metoprolol 25 mg twice daily - Given carotid artery stenosis as above, would avoid sudden drops in blood pressure given risk of stroke -Continue aspirin, Plavix, statin -Neurochecks, aspiration aspiration precautions, seizure precautions, NIH stroke scale -No further evidence of general tremor, stop Keppra -Remdesivir day 2 of 5 -Decadron day 2 of 10 -Rocephin, azithromycin -Vitamin C, vitamin D, zinc -Budesonide, ipratropium, monitor respiratory status -Cardiac echo -Monitor blood pressures closely -Oxygen therapy -Full code -Lovenox for DVT prophylaxis Hypertensive emergency as above Hypertensive encephalopathy as above Non-ST elevation VA, serial troponins, serial EKGs,, cardiac echo aspirin, statin, Plavix, beta-uastin, Type 2 diabetes mellitus, low-dose sliding scale Hyperlipidemia as above COVID-19 pneumonia, elevated D-dimer 3, venous ultrasound negative for DVT, will do CT angiogram to eval for pulmonary emboli Status: Acute (2) Pneumonia due to COVID-19 virus: Status: Acute (3) Hypertensive emergency: Status: Acute (4) Hypertensive encephalopathy: Status: Acute (5) Carotid stenosis: Status: Acute Qualifiers: Laterality: unspecified laterality Qualified Code(s): I65.29 - Occlusion and stenosis of unspecified carotid artery (6) Diabetes: Status: Acute Qualifiers: Diabetes mellitus type: type 2 Diabetes mellitus terminal computer operator insulin use: without terminal computer operator use Diabetes mellitus complication status: with kidney complications Diabetes mellitus complication detail: with chronic kidney disease (7) HTN (hypertension): Status: Acute Qualifiers: Hypertension type: essential hypertension Qualified Code(s): I10 - Essential (primary) hypertension (8) Hyperlipidemia: Status: Acute Qualifiers: Hyperlipidemia type: unspecified Qualified Code(s): E78.5 - Hyperlipidemia, unspecified Attestations Medical Necessity Statement*: Patient requires hospitalization, inpatient, greater than 2 midnights, for acute encephalopathy, hypertensive encephalopathy, COVID-19 pneumonia, NSTEMI Coding Level of Care Code Acute [facility] Diagnoses Acute encephalopathy G93.40 Pneumonia due to COVID-19 virus U07.1; J12.82 Hypertensive emergency I16.1 Hypertensive encephalopathy I67.4 Carotid stenosis I65.29 Laterality: unspecified laterality Diabetes E11.9 Diabetes mellitus type: type 2 Diabetes mellitus care home insulin use: without terminal computer operator use Diabetes mellitus complication status: with kidney complications Diabetes mellitus complication detail: with chronic kidney disease HTN (hypertension) I10 Hypertension type: essential hypertension Hyperlipidemia E78.5 Hyperlipidemia type: unspecified
[2021-04-29 14:22] LABS: Glucose Point of Care 225 mg/dL (70-110)
[2021-04-29] MEDS: magnesium sulfate premix 4 GM/100 ML PREMIX IV (14:40)
[2021-04-29] MEDS: iodixanol 320 mg/mL 100mL Btl IV (15:16)
[2021-04-29 17:14] LABS: Glucose Point of Care 195 mg/dL (70-110)
--- NOTE | 2021-04-29 18:56 | PC.NURSE ---
Gave bedside report to Therese.
[2021-04-29] MEDS: remdesivir 100 MG in sodium chloride 0.9% (100 ml) 80 ML IV (19:55)
[2021-04-29] MEDS: budesonide 0.5 mg/2 mL Neb INHALATION (20:38)
[2021-04-29 20:43] LABS: Glucose Point of Care 241 mg/dL (70-110)
[2021-04-30] VITALS (12 sets, daily range): BP systolic 117–134; BP diastolic 59–72; PULSE 59–78; RESP 16–20; TEMP 36.6–36.8; O2SAT 92–99
[2021-04-30] MEDS: enoxaparin 40 mg/0.4 mL Syringe SUBCUT (03:40)
[2021-04-30] MEDS: pantoprazole 40 mg SDV IVP (03:40)
[2021-04-30] MEDS: cefTRIAXone 1,000 MG in sodium chloride 0.9% (plus) 50 ML 100 MG IV (03:41)
[2021-04-30] MEDS: azithromycin 500 MG in sodium chloride 0.9% 250 ML 250 MG IV (04:13)
[2021-04-30 06:33] LABS: Basophils # 0.1 10^3/uL (0.0-0.1); Basophils % 0.5 %; Eosinophils # 0.1 10^3/uL (0.0-0.8); Eosinophils % 0.6 %; Hematocrit 38.1 % (42.0-52.0); Hemoglobin 11.7 g/dL (11.7-16.6); Lymphocytes # 0.8 10^3/uL (0.8-4.8); Lymphocytes % 6.6 %; Mean Corpuscular HGB Conc 30.7 g/dL (30.0-36.0); Mean Corpuscular Hemoglobin 28.9 pg (28.0-34.0); Mean Corpuscular Volume 94.1 fl (80-94); Monocytes # 0.9 10^3/uL (0.2-0.9); Monocytes % 7.9 %; Neutrophils # 9.78 10^3/uL (1.8-7.7); Neutrophils % 83.6 %; Nucleated Red Blood Cells % 0 %; Platelet Count 273 10^3/cmm (130-400); Red Blood Count 4.05 10^6/uL (4.1-5.3); Red Cell Distribution Width 14.3 % (12.1-15.1); White Blood Count 11.7 10^3/uL (4.0-10.0)
[2021-04-30 06:36] LABS: Glucose Point of Care 224 mg/dL (70-110)
[2021-04-30 06:58] LABS: INR 1.05 (0.8-1.2)
[2021-04-30 07:09] LABS: Blood Urea Nitrogen 36 mg/dL (8-23); Calcium 8.3 mg/dL (8.5-10.5); Carbon Dioxide 20 mmol/L (22-29); Chloride 104 mmol/L (98-107); Creatinine Clr Calc Pharmacy 45.2596; Glucose 218 mg/dL (65-115); Osmolality Calculated 301 mOsm/kg (285-295); Sodium 138 mmol/L (136-145)
[2021-04-30 07:29] LABS: Anion Gap 18.5 (5-19); Potassium 4.5 mmol/L (3.5-5.1)
[2021-04-30 07:45] LABS: Magnesium 1.8 mg/dL (1.7-2.3); Phosphorus 3.1 mg/dL (2.5-4.5)
[2021-04-30] MEDS: clopidogrel 75 mg Tablet PO (08:18)
[2021-04-30] MEDS: ascorbic acid 500 mg Tablet PO (08:18)
[2021-04-30] MEDS: metoprolol tartrate 25 mg Tablet PO (08:18)
[2021-04-30] MEDS: amlodipine 10 mg Tablet PO (08:18)
[2021-04-30] MEDS: insulin lispro 100 unit/1 mL SUBCUT (08:18)
[2021-04-30] MEDS: zinc gluconate 50 mg Tablet PO (08:18)
[2021-04-30] MEDS: cloNIDine 0.1 mg Tablet PO (08:18)
[2021-04-30] MEDS: aspirin 81 mg EC Tablet PO (08:18)
[2021-04-30] MEDS: cholecalciferol (vitamin D3) 1,000 unit Tablet 1000 UNIT PO (08:18)
[2021-04-30] MEDS: budesonide 0.5 mg/2 mL Neb INHALATION (09:27)
[2021-04-30] MEDS: ipratropium-albuterol 3 mL Neb INHALATION (09:27)
--- NOTE | 2021-04-30 10:06 | PM.DCS ---
Discharge Providers Date of Admission: 04/28/21 17:17 Date of Discharge: April 30, 2021 Attending Provider at Admission: Pino Fernando MD Attending Provider at Discharge: Pino Fernando MD Primary Care Provider: Karey Villa Diagnoses at Discharge Discharge Diagnosis (1) Acute encephalopathy: Status: Acute (2) Pneumonia due to COVID-19 virus: Status: Acute (3) Hypertensive emergency: Status: Acute (4) Hypertensive encephalopathy: Status: Acute (5) Carotid stenosis: Status: Acute Qualifiers: Laterality: unspecified laterality Qualified Code(s): I65.29 - Occlusion and stenosis of unspecified carotid artery (6) Diabetes: Status: Acute Qualifiers: Diabetes mellitus type: type 2 Diabetes mellitus nursing home insulin use: without nursing home use Diabetes mellitus complication status: with kidney complications Diabetes mellitus complication detail: with chronic kidney disease (7) HTN (hypertension): Status: Acute Qualifiers: Hypertension type: essential hypertension Qualified Code(s): I10 - Essential (primary) hypertension (8) Hyperlipidemia: Status: Acute Qualifiers: Hyperlipidemia type: unspecified Qualified Code(s): E78.5 - Hyperlipidemia, unspecified Reason for Visit Reason for Visit: FALL/ POSSIBLE AMS/ WEAKNESS Hospital Course Hospital Course Franco Anderson is a 75 year old male with a past medical history of hypertension, hyperlipidemia, diabetes, CKD, COPD, B12 deficiency, CAD who presents to [facility] due to altered mental status. Patient was admitted to [facility] for acute encephalopathy secondary to hypertensive encephalopathy, COVID-19 pneumonia. He was put on a Cardizem drip, blood pressure was slowly reduced, given his right carotid artery stenosis a slow reduction was opted for to decrease risk of CVA, blood pressure significantly improved, blood pressures remain reasonable throughout his hospitalization, discharged on Norvasc 10 mg daily, clonidine 0.1 mg twice daily, with metoprolol 25 mg twice daily. Patient does admit to Sudafed use which likely contributed to his hypertensive encephalopathy. Patient was advised to not use Sudafed. Patient was advised to follow-up with primary care provider in 1 week with blood pressure check. For his COVID-19 pneumonia, initially did require oxygen, received 2 days of remdesivir, Decadron, broad-spectrum antibiotic therapy, his oxygen requirements have decreased to room air, remains afebrile, denies any shortness of breath, ambulating without significant symptomatology. Will be discharged on vitamin C, zinc, vitamin D, inhaler therapy, Levaquin for antibiotic coverage. Did have groundglass opacities in left upper and left lower lobe, possible secondary bacterial infection although I feel unlikely nonetheless I discharged him on Levaquin. I have advised him to self isolate for at least 2 weeks since symptom onset. Facemask, hand wash, hydrate well. In terms of his hypercoagulability prophylaxis for COVID-19, he is already on aspirin, Plavix which he should continue. He remains mobile, no history of DVT or PE, no recent history of surgery. Adding on a anticoagulate given his age does carry significant risks of bleeding. But he does have increased risk of hypercoagulability events, I have discussed risk and benefits of anticoagulation he voiced head, all questions answered, agreed to proceed with just aspirin and Plavix. Patient was advised if he were to have symptoms of chest pain, or DVT or pulmonary embolism to go to emergency room. Advised to continue to be mobile at home. In terms of his right carotid artery stenosis, found on imaging, has a history of carotid artery stenosis, no symptoms of a CVA, MRI of the head was negative for acute CVA, but did have tiny lacunar infarcts in basal ganglia bilaterally, discharged home on his aspirin, Plavix, statin follow-up with Dr. Mckeon closely as outpatient. Patient was advised if he were to have strokelike symptoms call 911. Creatinine on discharge 1.6, advised to hold lisinopril, drink plenty electrolyte balance fluids, follow-up with primary care provider 1 week Physical Exam Const: COMMON NORMALS: no acute distress and patient oriented x3 Resp: COMMON NORMALS: normal respiratory effort, No retractions, No use of accessory muscles and clear to auscultation bilaterally AUSCULTATION: clear to auscultation bilaterally Cardio: COMMON NORMALS: regular rate, regular rhythm, S1 normal heart sound present and S2 normal heart sound present RATE: regular rate RHYTHM: regular rhythm HEART SOUNDS: S1 normal heart sound present and S2 normal heart sound present GI: COMMON NORMALS: Normal to inspection, nondistended, normoactive bowel sounds present, Soft to palpation and non-tender PALPATION: Yes Soft to palpation Extremity: COMMON NORMALS: no pedal edema Neuro: COMMON NORMALS: patient oriented x3 Psych: COMMON NORMALS: mental status grossly normal Discharge Data Data Completed and Pending: Completed Studies During Hospitalization Category Date Time Status CT angio chest PE protcl [id number] Rout ine Cat Scan 04/29/21 10:[address] angio headneck * [id number] Stat Cat Scan 04/28/21 17:[address] head wo con* 7 [id number] Stat Cat Scan 04/28/21 14:15 Completed XR chest 1V deandra ble [id number] Stat Exams 04/28/21 14:15 Completed MR head wo con* 7 [id number] Urgent MRI 04/29/21 03:17 [place] [id number] Routin e Ultrasound 04/29/21 10:27 Completed CV. echo complete * [id number] Routine Ultrasound 04/29/21 03:17 Completed Pending at discharge Category Date Time Status Basic Metabolic P vesta AM LABS Lab 05/01/21 04:00 Ordered Blood Culture Rou padmini Lab 04/29/21 04:55 Results Complete Blood Co unt w/Auto AM LABS Lab 05/01/21 04:00 Ordered Complete Blood Co unt w/Auto AM LABS Lab 05/02/21 04:00 Ordered Magnesium AM LABS Lab 05/01/21 04:00 Ordered Phosphorus AM LAB S Lab 05/01/21 04:00 Ordered Prothrombin Time INR AM LABS Lab 05/01/21 04:00 Ordered Labs from last 24 hours 04/30/21 04/30/21 04/30/21 06:32 06:08 06:08 WBC RBC Hgb Hct MCV MCH MCHC RDW Plt Count MPV Neut % (Auto) Lymph % (Auto) [place] % (Auto) Eos % (Auto) Baso % (Auto) Neut # (Auto) Lymph # (Auto) [place] # (Auto) Eos # (Auto) Baso # (Auto) Nucleated RBC % (a uto) Nucleated RBCs # PT 14.00 INR 1.05 Sodium Potassium Chloride Carbon Dioxide Anion Gap BUN Creatinine GFR Calculation Glucose POC Glucose 224 H Calculated Osmolal ity Calcium Phosphorus 3.1 Magnesium 1.8 04/30/21 04/30/21 04/29/21 06:08 06:08 20:21 WBC 11.7 H RBC 4.05 L Hgb 11.7 Hct 38.1 L MCV 94.1 H D MCH 28.9 MCHC 30.7 D RDW 14.3 Plt Count 273 MPV 12.0 H Neut % (Auto) 83.6 Lymph % (Auto) 6.6 [place] % (Auto) 7.9 Eos % (Auto) 0.6 Baso % (Auto) 0.5 Neut # (Auto) 9.78 H Lymph # (Auto) 0.8 [place] # (Auto) 0.9 Eos # (Auto) 0.1 Baso # (Auto) 0.1 Nucleated RBC % (a uto) 0 Nucleated RBCs # 0.0 PT INR Sodium 138 Potassium 4.5 Chloride 104 Carbon Dioxide 20 L Anion Gap 18.5 BUN 36 H Creatinine 1.6 H GFR Calculation Not Reportable Glucose 218 H POC Glucose 241 H Calculated Osmolal ity 301 H Calcium 8.3 L Phosphorus Magnesium 04/29/21 04/29/21 17:07 14:19 WBC RBC Hgb Hct MCV MCH MCHC RDW Plt Count MPV Neut % (Auto) Lymph % (Auto) [place] % (Auto) Eos % (Auto) Baso % (Auto) Neut # (Auto) Lymph # (Auto) [place] # (Auto) Eos # (Auto) Baso # (Auto) Nucleated RBC % (a uto) Nucleated RBCs # PT INR Sodium Potassium Chloride Carbon Dioxide Anion Gap BUN Creatinine GFR Calculation Glucose POC Glucose 195 H 225 H Calculated Osmolal ity Calcium Phosphorus Magnesium Vitals: Last Vital Signs Temp 97.9 F 04/30/21 08:14 Pulse 71 04/30/21 09:34 Resp 17 04/30/21 09:27 BP 134/72 04/30/21 08:18 Pulse Ox 97 04/30/21 09:30 Discharge Plan Discharge Patient Disposition: Home Condition: Stable Prescriptions: New amlodipine 10 mg Tablet 10 mg PO DAILY 30 Days Qty: 30 RF: 0 ascorbic acid (vitamin C) [Vitamin C] 500 mg Tablet 500 mg PO BID 15 Days Qty: 30 RF: 0 cholecalciferol (vitamin D3) 25 mcg (1,000 unit) Tablet 1,000 unit PO DAILY 15 Days Qty: 15 RF: 0 zinc gluconate 50 mg Tablet 50 mg PO DAILY 30 Days Qty: 30 RF: 0 clonidine HCl 0.1 mg Tablet 0.1 mg PO BID 30 Days Qty: 60 RF: 0 levofloxacin 750 mg tablet 750 mg PO Q48H 6 Days Qty: 3 RF: 0 Continued timolol 0.5 % drops 1 drp ophthalmic (eye) QAM RF: 0 metformin 1,000 mg tablet 1,000 mg PO BID RF: 0 simvastatin 20 mg tablet 20 mg PO DAILY RF: 0 aspirin 81 mg tablet,delayed release (DR/EC) 81 mg PO DAILY RF: 0 cholecalciferol (vitamin D3) 25 mcg (1,000 unit) capsule 25 mcg PO DAILY RF: 0 glipizide 10 mg tablet 10 mg PO BID RF: 0 vitamin B complex [B Complex-Vitamin B12] Tablet 1 tab PO DAILY RF: 0 clopidogrel 75 mg tablet 75 mg PO DAILY RF: 0 nitroglycerin 0.4 mg tablet, sublingual 0.4 mg sublingual Q5M PRN (Reason: Chest Pain) RF: 0 metoprolol tartrate 25 mg tablet 25 mg PO BID RF: 0 Discontinued lisinopril 20 mg tablet 20 mg PO DAILY RF: 0 Discharge Orders: Discharge Order (Routine); Ordered 04/30/21 Ordered By: Pino Fernando Referrals: Jens Mckeon MD [Physician] - 1-3 days (right carotid stenosis) Karey Villa [Primary Care Provider] - 4-7 days Discharge Diet: Cardiac Discharge Activity: Resume usual activity Patient Instructions: Opioid Safety Activity Restrictions/Additional Instructions: - If you have strokelike symptoms please call 911 -Please go to the emergency room if you have worsening shortness of breath, fevers, cough -You have COVID-19, continue to self isolate, socially distance, facemask for at least 2 weeks -Please hydrate well -Continue aspirin, Plavix, statin -Continue to be mobile -If you have any symptoms of blood clots including chest pain, calf pain or Swelling, or bloody cough or sudden onset shortness of breath this is a emergency go to the emergency room -Please discuss with primary care provider about COVID vaccination within a month Discharge Attestations Time Spent in Discharge Care*: less than 30 min Quality Metrics Clinical Quality Measures During this hospital stay, did patient experience: None Coding Level of Care Code Acute [facility] note Diagnoses Acute encephalopathy G93.40 Pneumonia due to COVID-19 virus U07.1; J12.82 Hypertensive emergency I16.1 Hypertensive encephalopathy I67.4 Carotid stenosis I65.29 Laterality: unspecified laterality Diabetes E11.9 Diabetes mellitus type: type 2 Diabetes mellitus chief learning officer insulin use: without chief learning officer use Diabetes mellitus complication status: with kidney complications Diabetes mellitus complication detail: with chronic kidney disease HTN (hypertension) I10 Hypertension type: essential hypertension Hyperlipidemia E78.5 Hyperlipidemia type: unspecified
[2021-04-30 10:40] LABS: Glucose Point of Care 319 mg/dL (70-110)
--- NOTE | 2021-04-30 11:57 | PC.NURSE ---
Patient reports missing jeans, white diabetic shoes, and bulldogs shirt.
== END 2021-04-30 11:58 | disposition home or self-care (01) | DRG 177 ==
LOC: ER 14:47 → ER IP 20:08 → MEDSURG 04-29 14:39
PROVIDERS: Admitting Provider Family Medicine; Emergency Provider Family Medicine; PCP Nurse Practitioner Family; Visit Provider Family Medicine
DX: U07.1 COVID-19 (principal); J12.82 Pneumonia due to coronavirus disease 2019; I21.4 Non-ST elevation (NSTEMI) myocardial infarction; I67.4 Hypertensive encephalopathy; E11.22 Type 2 diabetes mellitus with diabetic chronic kidney disease; I12.9 Hypertensive chronic kidney disease with stage 1 through stage 4 chronic kidney disease, or unspecified chronic kidney disease; N18.9 Chronic kidney disease, unspecified; I25.10 Atherosclerotic heart disease of native coronary artery without angina pectoris; Z95.5 Presence of coronary angioplasty implant and graft; E78.5 Hyperlipidemia, unspecified; Z96.642 Presence of left artificial hip joint; Z87.891 Personal history of nicotine dependence; I16.0 Hypertensive urgency; J44.9 Chronic obstructive pulmonary disease, unspecified; E53.8 Deficiency of other specified B group vitamins; Z79.84 Long term (current) use of oral hypoglycemic drugs; Z79.82 Long term (current) use of aspirin; Z79.02 Long term (current) use of antithrombotics/antiplatelets
CPT/HCPCS: 36415; 36416; 36600; 51701; 70450; 70496; 70498; 70551; 71045; 71275; 80048; 80051; 80053; 80307; 81001; 82330; 82550; 82805; 82962; 83605; 83735; 83880; 84100; 84145; 84443; 84484; 85025; 85378; 85610; 87040; 87635; 92523; 92610; 93005; 93306; 93970; 94640; 94664; 96372; 97165; 99285; C9113; J0360; J0456; J0696; J1100; J1650; J1815; J1953; J3475; J3490; J7050; J7626; Q9967